=== PATIENT | male | born 1960 | race African-American/Black ===

== ENCOUNTER 2017-02-20 20:54 | Emergency (ER) | payer MEDICAID ==
[~2017-02-20] VITALS: Ht 172.7 cm; Wt 72.6 kg
[2017-02-20] MEDS ORDERED: SODIUM CHLORIDE 0.9% 1,000 ML IV ONE (22:33)
[2017-02-20 23:31] LABS: BASOPHILS % 0.6 % (0.0-2.0); EOSINOPHILS % 1.1 % (0.0-5.0); HEMATOCRIT. 40.1 % (42.0-52.0); HEMOGLOBIN. 13.2 g/dL (14.0-18.0); LYMPHOCYTES % 8.8 % (20.0-50.0); MEAN CORPUSCULAR HEMOGLOBIN 29.3 pg (28.0-32.0); MEAN CORPUSCULAR VOLUME 88.9 fL (80.0-94.0); MEAN PLATELET VOLUME 8.1 fl (7.4-10.4); MONOCYTES % 3.6 % (2.0-8.0); NEUTROPHILS % 85.9 % (40.0-76.0); PLATELET 242 x1000/uL (130-400); RED BLOOD CELL COUNT 4.51 mill/uL (4.7-6.1); RED CELL DISTRIBUTION WIDTH 14.4 % (11.6-14.6)
[2017-02-20 23:36] LABS: CHLORIDE 108 mEq/L (98-107)
[2017-02-20 23:44] LABS: CARBON DIOXIDE 29 mEq/L (21-32); ETHANOL BLOOD < 10 mg/dL
[2017-02-21] MEDS ORDERED: MORPHINE SULFATE 4 MG/ML CPJ (NOT FOR IM USE) IV ONE (00:45)
[2017-02-21 01:20] LABS: CLARITY URINE CLEAR (CLEAR); COLOR URINE YELLOW (YELLOW); GLUCOSE URINE NEGATIVE (NEGATIVE); KETONES URINE NEGATIVE (NEGATIVE); LEUKOCYTE ESTERASE URINE NEGATIVE (NEGATIVE); NITRITE URINE NEGATIVE (NEGATIVE); OCCULT BLOOD URINE NEGATIVE (NEGATIVE); PH URINE 7.5 (4.5-8.0); PROTEIN URINE NEGATIVE (NEGATIVE); SPECIFIC GRAVITY URINE 1.008 (1.005-1.030); UROBILINOGEN URINE 0.2 E.U./dL (0.2-1.0)
[2017-02-21 01:33] LABS: *AMPHETAMINES SCREEN URINE NEGATIVE (NEGATIVE); *BARBITURATES SCREEN URINE NEGATIVE (NEGATIVE); *BENZODIAZEPINES SCREEN URINE NEGATIVE (NEGATIVE); *COCAINE SCREEN URINE NEGATIVE (NEGATIVE); CANNABINOID URINE SCREEN NEGATIVE (NEGATIVE); METHADONE URINE SCREEN NEGATIVE (NEGATIVE); OPIATES URINE SCREEN PRESUMTIVE POSITIVE (NEGATIVE); PHENCYCLIDINE URINE SCREEN NEGATIVE (NEGATIVE)
[2017-02-21 02:20] VITALS: BP 132/94
== END 2017-02-21 02:20 | disposition home or self-care (01) ==
LOC: ER 21:40
DX: K40.90 Unilateral inguinal hernia, without obstruction or gangrene, not specified as recurrent (principal); K59.00 Constipation, unspecified; I10 Essential (primary) hypertension; F17.210 Nicotine dependence, cigarettes, uncomplicated
CPT/HCPCS: 36415; 80053; 80305; 81003; 83690; 85025; 96360; 96361; 99285; G0482; J7030; Z7610

== ENCOUNTER 2017-03-20 12:31 | Emergency (ER) | payer MEDICAID, OTHER ==
[~2017-03-20] VITALS: Ht 182.9 cm; Wt 72.6 kg
[2017-03-20 15:35] VITALS: BP 141/90
== END 2017-03-20 15:36 | disposition home or self-care (01) ==
LOC: ER 12:32
DX: G89.18 Other acute postprocedural pain (principal); F32.9 Major depressive disorder, single episode, unspecified; I10 Essential (primary) hypertension; F17.200 Nicotine dependence, unspecified, uncomplicated; Z98.890 Other specified postprocedural states
CPT/HCPCS: 99283

== ENCOUNTER 2019-02-28 05:03 | Emergency (ER) | payer OTHER, MEDICAID ==
[~2019-02-28] VITALS: Ht 177.8 cm; Wt 88.0 kg
[~2019-02-28 05:03] MED LIST: AMLO10TA80 PO; ATEN-42 PO; HYDR-4067 PO; LISI1TAB9 MT; MIRT15TA MT; [UNRECOGNIZED DRUG - CODE] TP
[2019-02-28] MEDS ORDERED: SODIUM CHLORIDE 0.9% 1,000 ML IV ONE (05:20)
[2019-02-28] MEDS ORDERED: ONDANSETRON HCL 4MG/2ML INJ IV STA (05:20)
[2019-02-28] MEDS ORDERED: KETOROLAC 30MG/ML VIAL IV STA (05:20)
[2019-02-28 05:42] LABS: CHLORIDE 105 mEq/L (98-107)
[2019-02-28 05:45] LABS: BASOPHILS % 0.4 % (0.0-2.0); HEMATOCRIT. 36.4 % (42.0-52.0); LYMPHOCYTES % 8.1 % (20.0-50.0); MEAN CORPUSCULAR HEMOGLOBIN 29.2 pg (28.0-32.0); MEAN CORPUSCULAR VOLUME 88.7 fL (80.0-94.0); MEAN PLATELET VOLUME 7.4 fl (7.4-10.4); MONOCYTES % 4.6 % (2.0-8.0); NEUTROPHILS % 85.9 % (40.0-76.0); PLATELET 411 x1000/uL (130-400); RED BLOOD CELL COUNT 4.11 mill/uL (4.7-6.1); RED CELL DISTRIBUTION WIDTH 14.6 % (11.6-14.6)
[2019-02-28] MEDS ORDERED: VISCOUS LIDOCAINE 2% 15 ML UDC PO STA (06:20)
[2019-02-28] MEDS ORDERED: MAGNESIUM/ALUMINUM HYDROXIDE/SIMETHICONE 30ML UDC PO STA (06:20)
[2019-02-28 07:08] LABS: CLARITY URINE TURBID (CLEAR); COLOR URINE YELLOW (YELLOW); KETONES URINE NEGATIVE (NEGATIVE); LEUKOCYTE ESTERASE URINE NEGATIVE (NEGATIVE); NITRITE URINE NEGATIVE (NEGATIVE); OCCULT BLOOD URINE NEGATIVE (NEGATIVE); PH URINE >=9.0 (4.5-8.0); PROTEIN URINE NEGATIVE (NEGATIVE); SPECIFIC GRAVITY URINE 1.014 (1.005-1.030)
[2019-02-28 10:15] VITALS: BP 124/75
== END 2019-02-28 11:30 | disposition home or self-care (01) ==
LOC: ER 05:03
DX: R10.30 Lower abdominal pain, unspecified (principal); I10 Essential (primary) hypertension; R11.2 Nausea with vomiting, unspecified; Z87.19 Personal history of other diseases of the digestive system
CPT/HCPCS: 36415; 74176; 80053; 81003; 83690; 85025; 96361; 96374; 96375; 99284; J1885; J2405; J7030

== ENCOUNTER 2019-04-08 16:18 | Emergency (ER) | payer OTHER, MEDICAID ==
[~2019-04-08] VITALS: Ht 182.9 cm; Wt 77.0 kg
[2019-04-08] MEDS ORDERED: ASPIRIN 81MG TABLET PO ONE (17:45)
[2019-04-08 18:18] LABS: BASOPHILS % 0.8 % (0.0-2.0); EOSINOPHILS % 1.5 % (0.0-5.0); HEMATOCRIT. 39.9 % (42.0-52.0); HEMOGLOBIN. 13.1 g/dL (14.0-18.0); MEAN CORPUSCULAR HEMOGLOBIN 29.6 pg (28.0-32.0); MEAN CORPUSCULAR VOLUME 89.9 fL (80.0-94.0); MEAN PLATELET VOLUME 8.2 fl (7.4-10.4); NEUTROPHILS % 69.7 % (40.0-76.0); PLATELET 292 x1000/uL (130-400); RED BLOOD CELL COUNT 4.44 mill/uL (4.7-6.1); RED CELL DISTRIBUTION WIDTH 14.5 % (11.6-14.6)
[2019-04-08 18:25] LABS: CHLORIDE 106 mEq/L (98-107)
[2019-04-08 18:27] LABS: CLARITY URINE CLEAR (CLEAR); COLOR URINE YELLOW (YELLOW); KETONES URINE NEGATIVE (NEGATIVE); LEUKOCYTE ESTERASE URINE NEGATIVE (NEGATIVE); NITRITE URINE NEGATIVE (NEGATIVE); OCCULT BLOOD URINE NEGATIVE (NEGATIVE); PROTEIN URINE NEGATIVE (NEGATIVE); SPECIFIC GRAVITY URINE 1.008 (1.005-1.030)
[2019-04-08 18:29] LABS: PARTIAL THROMBOPLASTIN TIME 26.8 sec (23.4-31.0); PROTHROMBIN TIME 10.7 sec (9.6-11.0)
[2019-04-08 18:33] LABS: ETHANOL BLOOD < 10 mg/dL
[2019-04-08 18:36] LABS: CREATINE KINASE 89 IU/L (39-308); CREATINE KINASE MB FRACTION < 1.0 ng/mL (0.5-3.6)
[2019-04-08 18:38] LABS: LDL CHOLESTEROL 124 mg/dL (5-100)
[2019-04-08 18:40] LABS: HDL CHOLESTEROL 37 mg/dL (40-59)
[2019-04-08 19:04] LABS: *BENZODIAZEPINES SCREEN URINE NEGATIVE (NEGATIVE); *COCAINE SCREEN URINE NEGATIVE (NEGATIVE)
[2019-04-08 19:05] LABS: *AMPHETAMINES SCREEN URINE NEGATIVE (NEGATIVE); *BARBITURATES SCREEN URINE NEGATIVE (NEGATIVE); CANNABINOID URINE SCREEN NEGATIVE (NEGATIVE); METHADONE URINE SCREEN NEGATIVE (NEGATIVE); OPIATES URINE SCREEN NEGATIVE (NEGATIVE); PHENCYCLIDINE URINE SCREEN NEGATIVE (NEGATIVE)
[2019-04-08 20:30] VITALS: BP 136/72
== END 2019-04-08 20:30 | disposition left against medical advice (07) ==
LOC: ER 16:18 → CANBEDREQ 22:23
DX: R07.89 Other chest pain (principal); R06.02 Shortness of breath; I10 Essential (primary) hypertension; F17.210 Nicotine dependence, cigarettes, uncomplicated; Z82.49 Family history of ischemic heart disease and other diseases of the circulatory system; Z71.6 Tobacco abuse counseling
CPT/HCPCS: 36415; 71045; 80061; 80305; 80320; 82550; 82553; 83880; 84443; 84484; 93005; 99284; 99406; G0480

== ENCOUNTER 2021-07-22 20:41 | Emergency (ER) | payer OTHER, MEDICAID ==
[~2021-07-22] VITALS: Ht 182.9 cm; Wt 90.0 kg
[~2021-07-22 20:41] MED LIST changes: -HYDR-4067 PO; +HYDR-4797 PO; +MIRT-118 MT; -MIRT15TA MT
[2021-07-22 21:07] VITALS: BP 162/90
== END 2021-07-22 23:00 | disposition left against medical advice (07) ==
LOC: ER 20:41
DX: M79.18 Myalgia, other site (principal); Z53.21 Procedure and treatment not carried out due to patient leaving prior to being seen by health care provider
CPT/HCPCS: 71045

== ENCOUNTER 2021-07-23 10:05 | Emergency (ER) | payer OTHER, MEDICAID ==
[~2021-07-23] VITALS: Ht 182.9 cm; Wt 81.0 kg
[2021-07-23 12:14] LABS: BASOPHILS % 0.4 % (0.0-2.0); EOSINOPHILS % 1.1 % (0.0-5.0); HEMATOCRIT. 40.3 % (42.0-52.0); HEMOGLOBIN. 13.3 g/dL (14.0-18.0); LYMPHOCYTES % 13.5 % (20.0-50.0); MEAN CORPUSCULAR HEMOGLOBIN 28.9 pg (28.0-32.0); MEAN CORPUSCULAR VOLUME 87.3 fL (80.0-94.0); MEAN PLATELET VOLUME 8.4 fl (7.4-10.4); MONOCYTES % 12.1 % (2.0-8.0); NEUTROPHILS % 72.9 % (40.0-76.0); PLATELET 301 x1000/uL (130-400); RED BLOOD CELL COUNT 4.61 mill/uL (4.7-6.1); RED CELL DISTRIBUTION WIDTH 14.2 % (11.6-14.6)
[2021-07-23 12:24] LABS: CHLORIDE 106 mEq/L (98-107)
[2021-07-23 14:54] VITALS: BP 120/65
== END 2021-07-23 14:55 | disposition home or self-care (01) ==
LOC: ER 10:05
DX: J06.9 Acute upper respiratory infection, unspecified (principal); I10 Essential (primary) hypertension; Z20.822 Contact with and (suspected) exposure to COVID-19
CPT/HCPCS: 36415; 80048; 85025; 87804; 93005; 99284; C9803; U0003; U0005

== ENCOUNTER 2021-11-18 15:27 | Emergency (ER) | payer OTHER, MEDICAID ==
[~2021-11-18] VITALS: Ht 182.9 cm; Wt 83.0 kg
[2021-11-18 15:38] VITALS: BP 175/100
[2021-11-18] MEDS ORDERED: MAGNESIUM/ALUMINUM HYDROXIDE/SIMETHICONE 30ML UDC PO STA (16:08)
[2021-11-18] MEDS ORDERED: ONDANSETRON HCL 4MG/2ML INJ IV STA (16:08)
[2021-11-18] MEDS ORDERED: FAMOTIDINE 20MG/2ML VIAL IV STA (16:08)
[2021-11-18] MEDS ORDERED: SODIUM CHLORIDE 0.9% 1,000 ML IV ONE (16:15)
[2021-11-18 18:57] LABS: BASOPHILS % 0.6 % (0.0-2.0); EOSINOPHILS % 1.2 % (0.0-5.0); HEMATOCRIT. 45.5 % (42.0-52.0); HEMOGLOBIN. 14.9 g/dL (14.0-18.0); LYMPHOCYTES % 19.3 % (20.0-50.0); MEAN CORPUSCULAR HEMOGLOBIN 28.3 pg (28.0-32.0); MEAN CORPUSCULAR VOLUME 86.5 fL (80.0-94.0); MEAN PLATELET VOLUME 8.2 fl (7.4-10.4); MONOCYTES % 6.5 % (2.0-8.0); NEUTROPHILS % 72.4 % (40.0-76.0); PLATELET 304 x1000/uL (130-400); RED BLOOD CELL COUNT 5.26 mill/uL (4.7-6.1); RED CELL DISTRIBUTION WIDTH 14.6 % (11.6-14.6)
[2021-11-18 19:05] LABS: CHLORIDE 106 mEq/L (98-107)
[2021-11-18 19:06] LABS: CLARITY URINE CLEAR (CLEAR); COLOR URINE DARK YELLOW (YELLOW); KETONES URINE TRACE (NEGATIVE); LEUKOCYTE ESTERASE URINE NEGATIVE (NEGATIVE); NITRITE URINE NEGATIVE (NEGATIVE); OCCULT BLOOD URINE NEGATIVE (NEGATIVE); PROTEIN URINE 1+ (NEGATIVE); SPECIFIC GRAVITY URINE 1.027 (1.005-1.030)
[2021-11-18 19:16] LABS: *AMPHETAMINES SCREEN URINE NEGATIVE (NEGATIVE); *BARBITURATES SCREEN URINE NEGATIVE (NEGATIVE); *BENZODIAZEPINES SCREEN URINE NEGATIVE (NEGATIVE); *COCAINE SCREEN URINE NEGATIVE (NEGATIVE); CANNABINOID URINE SCREEN NEGATIVE (NEGATIVE)
[2021-11-18 19:17] LABS: METHADONE URINE SCREEN NEGATIVE (NEGATIVE); OPIATES URINE SCREEN NEGATIVE (NEGATIVE); PHENCYCLIDINE URINE SCREEN NEGATIVE (NEGATIVE)
[2021-11-18] MEDS ORDERED: POLY17PO3 MT (19:58)
[2021-11-18] MEDS ORDERED: FEO PR (19:59)
[2021-11-18] MEDS ORDERED: FAMO-135 MT (19:59)
== END 2021-11-18 20:25 | disposition home or self-care (01) ==
LOC: ER 15:27
DX: K21.9 Gastro-esophageal reflux disease without esophagitis (principal); K59.00 Constipation, unspecified; I10 Essential (primary) hypertension; Z79.899 Other long term (current) drug therapy
CPT/HCPCS: 36415; 71045; 71250; 74176; 80053; 80305; 81003; 83690; 83880; 84484; 85025; 93005; 96361; 96374; 96375; 99285; J2405; J3490; J7030

== ENCOUNTER 2021-11-21 09:36 | Emergency (ER) | payer OTHER, MEDICAID ==
[~2021-11-21] VITALS: Ht 182.9 cm; Wt 85.0 kg
[~2021-11-21 09:36] MED LIST changes: +FAMO-135 MT; +FEO PR; +POLY17PO3 MT
[2021-11-21] MEDS ORDERED: VISCOUS LIDOCAINE 2% 15 ML UDC PO STA (10:00)
[2021-11-21] MEDS ORDERED: FAMOTIDINE 20MG TABLET PO ONE (10:00)
[2021-11-21] MEDS ORDERED: MAGNESIUM/ALUMINUM HYDROXIDE/SIMETHICONE 30ML UDC PO STA (10:00)
[2021-11-21 11:55] LABS: BASOPHILS % 0.9 % (0.0-2.0); EOSINOPHILS % 4.1 % (0.0-5.0); HEMATOCRIT. 39.2 % (42.0-52.0); HEMOGLOBIN. 13.1 g/dL (14.0-18.0); LYMPHOCYTES % 24.7 % (20.0-50.0); MEAN CORPUSCULAR HEMOGLOBIN 28.8 pg (28.0-32.0); MEAN CORPUSCULAR VOLUME 86.2 fL (80.0-94.0); MEAN PLATELET VOLUME 7.8 fl (7.4-10.4); MONOCYTES % 9.3 % (2.0-8.0); PLATELET 294 x1000/uL (130-400); RED BLOOD CELL COUNT 4.55 mill/uL (4.7-6.1); RED CELL DISTRIBUTION WIDTH 14.5 % (11.6-14.6)
[2021-11-21 12:01] LABS: CHLORIDE 108 mEq/L (98-107)
[2021-11-21 12:11] VITALS: BP 167/100
[2021-11-21] MEDS ORDERED: LANS30CA55 MT (12:52)
[2021-11-21] MEDS ORDERED: AMOX-494 MT (12:52)
[2021-11-21] MEDS ORDERED: CLAR-44 MT (12:52)
== END 2021-11-21 13:02 | disposition home or self-care (01) ==
LOC: ER 09:36
DX: R13.10 Dysphagia, unspecified (principal); K21.9 Gastro-esophageal reflux disease without esophagitis; K29.50 Unspecified chronic gastritis without bleeding; I10 Essential (primary) hypertension; J44.9 Chronic obstructive pulmonary disease, unspecified; Z98.890 Other specified postprocedural states
CPT/HCPCS: 36415; 80053; 85025; 93005; 99284

== ENCOUNTER 2022-08-27 10:10 | Inpatient (IN) | payer OTHER, MEDICAID ==
[~2022-08-27] VITALS: Ht 182.9 cm; Wt 82.6 kg
[~2022-08-27 10:10] MED LIST changes: +AMOX-494 MT; +CLAR-44 MT; +LANS30CA55 MT
[2022-08-27 11:59] LABS: CLARITY URINE CLEAR (CLEAR); COLOR URINE YELLOW (YELLOW); KETONES URINE NEGATIVE (NEGATIVE); LEUKOCYTE ESTERASE URINE NEGATIVE (NEGATIVE); NITRITE URINE NEGATIVE (NEGATIVE); OCCULT BLOOD URINE NEGATIVE (NEGATIVE); PH URINE 6.5 (4.5-8.0); PROTEIN URINE NEGATIVE (NEGATIVE); SPECIFIC GRAVITY URINE 1.017 (1.005-1.030); UROBILINOGEN URINE 0.2 E.U./dL (0.2-1.0)
[2022-08-27 12:06] LABS: BASOPHILS % 0.4 % (0.0-2.0); CHLORIDE 109 mEq/L (98-107); EOSINOPHILS % 1.7 % (0.0-5.0); HEMATOCRIT. 43.4 % (42.0-52.0); HEMOGLOBIN. 14.2 g/dL (14.0-18.0); LYMPHOCYTES % 10.7 % (20.0-50.0); MEAN CORPUSCULAR HEMOGLOBIN 29.3 pg (28.0-32.0); MEAN CORPUSCULAR VOLUME 89.4 fL (80.0-94.0); MEAN PLATELET VOLUME 8.6 fl (7.4-10.4); MONOCYTES % 5.7 % (2.0-8.0); NEUTROPHILS % 81.5 % (40.0-76.0); PLATELET 268 x1000/uL (130-400); RED BLOOD CELL COUNT 4.86 mill/uL (4.7-6.1); RED CELL DISTRIBUTION WIDTH 14.9 % (11.6-14.6)
[2022-08-27 12:13] LABS: ETHANOL BLOOD < 10 mg/dL
[2022-08-27 12:22] LABS: *AMPHETAMINES SCREEN URINE NEGATIVE (NEGATIVE); *BARBITURATES SCREEN URINE NEGATIVE (NEGATIVE); *BENZODIAZEPINES SCREEN URINE NEGATIVE (NEGATIVE); *COCAINE SCREEN URINE NEGATIVE (NEGATIVE); CANNABINOID URINE SCREEN NEGATIVE (NEGATIVE); METHADONE URINE SCREEN NEGATIVE (NEGATIVE); OPIATES URINE SCREEN NEGATIVE (NEGATIVE); PHENCYCLIDINE URINE SCREEN NEGATIVE (NEGATIVE)
[2022-08-27] MEDS ORDERED: IOHEXOL-350 100 ML BOTTLE ONE (12:45)
[2022-08-27] MEDS ORDERED: ASPIRIN 325MG TABLET PO ONE (13:15)
[2022-08-27] MEDS: CLOPIDOGREL 75MG TABLET PO SCH (21:39)
[2022-08-27] MEDS: ASPIRIN 81MG TABLET PO SCH (21:39)
[2022-08-27 21:45] VITALS: BP 136/80
[2022-08-27] MEDS ORDERED: PANT40TA51 PO (22:27)
[2022-08-27] MEDS ORDERED: QUET25TA36 PO (22:27)
[2022-08-28] MEDS ORDERED: ACETAMINOPHEN 325MG TABLET PO PRN (00:45)
[2022-08-28] MEDS ORDERED: CLONIDINE 0.1MG TABLET PO PRN (00:45)
[2022-08-28 04:00] VITALS: BP 120/91
[2022-08-28 06:47] LABS: BASOPHILS % 0.6 % (0.0-2.0); EOSINOPHILS % 3.7 % (0.0-5.0); HEMATOCRIT. 40.3 % (42.0-52.0); HEMOGLOBIN. 13.5 g/dL (14.0-18.0); LYMPHOCYTES % 24.1 % (20.0-50.0); MEAN CORPUSCULAR HEMOGLOBIN 29.4 pg (28.0-32.0); MEAN CORPUSCULAR VOLUME 87.7 fL (80.0-94.0); MEAN PLATELET VOLUME 8.5 fl (7.4-10.4); MONOCYTES % 8.2 % (2.0-8.0); NEUTROPHILS % 63.4 % (40.0-76.0); PLATELET 238 x1000/uL (130-400); RED CELL DISTRIBUTION WIDTH 14.9 % (11.6-14.6)
[2022-08-28 07:13] LABS: CHLORIDE 107 mEq/L (98-107)
[2022-08-28 07:27] LABS: HDL CHOLESTEROL 39 mg/dL (40-59); LDL CHOLESTEROL 99 mg/dL (5-100)
[2022-08-28 08:00] VITALS: BP 128/80
[2022-08-28] MEDS ORDERED: ENOXAPARIN 40MG/0.4ML SYR SUBCUT SCH (09:00)
[2022-08-28] MEDS: ASPIRIN 81MG TABLET PO SCH (09:19)
[2022-08-28] MEDS: CLOPIDOGREL 75MG TABLET PO SCH (09:19)
[2022-08-28 12:00] VITALS: BP 123/81
[2022-08-28 16:00] VITALS: BP 128/82
== END 2022-08-28 17:55 | disposition home or self-care (01) | DRG 57 ==
LOC: ER 10:10 → EDBEDREQTM 11:35 → EDBEDREQ 11:35 → EDBEDREQSVC 11:35 → MICUSO 13:10 → EDBEDREQ 13:11 → EDBEDREQTM 13:11 → 7WST 22:18
PROVIDERS: ADMIT Internal Medicine; ATTEND Internal Medicine
DX: G81.91 Hemiplegia, unspecified affecting right dominant side (principal); R47.1 Dysarthria and anarthria; R26.0 Ataxic gait; J44.9 Chronic obstructive pulmonary disease, unspecified; I10 Essential (primary) hypertension; Z20.822 Contact with and (suspected) exposure to COVID-19; F31.9 Bipolar disorder, unspecified; F20.9 Schizophrenia, unspecified; R20.2 Paresthesia of skin; K21.9 Gastro-esophageal reflux disease without esophagitis; E78.5 Hyperlipidemia, unspecified; F17.210 Nicotine dependence, cigarettes, uncomplicated; Z86.73 Personal history of transient ischemic attack (TIA), and cerebral infarction without residual deficits; Z79.899 Other long term (current) drug therapy; Z79.82 Long term (current) use of aspirin; R29.703 NIHSS score 3
CPT/HCPCS: 36415; 70496; 70498; 71045; 80048; 80053; 80061; 80305; 80320; 81003; 83036; 84443; 85025; 93005; 93306; 99291; J1650; Q9967; G0480

== ENCOUNTER 2022-09-07 23:55 | Emergency (ER) | payer OTHER, MEDICAID ==
[~2022-09-07] VITALS: Ht 182.9 cm; Wt 78.0 kg
[~2022-09-07 23:55] MED LIST changes: +PANT40TA51 PO; +QUET25TA36 PO
[2022-09-08 00:05] VITALS: BP 189/97
== END 2022-09-08 06:58 | disposition left against medical advice (07) ==
LOC: ER 09-08 00:12
DX: Z53.21 Procedure and treatment not carried out due to patient leaving prior to being seen by health care provider (principal)

== ENCOUNTER 2024-04-07 02:56 | Emergency (ER) | payer OTHER, MEDICAID ==
[~2024-04-07] VITALS: Ht 182.9 cm; Wt 77.0 kg
[~2024-04-07 02:56] MED LIST changes: -MIRT-118 MT; +MIRT-144 MT
[2024-04-07 03:03] VITALS: O2SAT 100
[2024-04-07] MEDS: ONDANSETRON 4MG ODT PO STA (03:20)
[2024-04-07] MEDS: HYDROCODONE/ACETAMINOPHEN 5/325MG TABLET PO STA (04:45)
[2024-04-07] MEDS ORDERED: GENT5DRO38 EACHEYE (05:50)
[2024-04-07] MEDS ORDERED: AMOX-494 MT (05:50)
[2024-04-07] MEDS ORDERED: CETI10CA2 MT (05:50)
[2024-04-07 06:15] VITALS: BP 161/90; PULSE 86; RESP 20; TEMP 98.3
== END 2024-04-07 06:15 | disposition home or self-care (01) ==
LOC: ER 02:56
DX: H10.9 Unspecified conjunctivitis (principal); I10 Essential (primary) hypertension; R51.9 Headache, unspecified; Z79.899 Other long term (current) drug therapy
CPT/HCPCS: 99284; 70450; Q0162

== ENCOUNTER 2024-09-04 14:58 | Emergency (ER) | payer MEDICARE, MEDICAID ==
[~2024-09-04] VITALS: Ht 180.3 cm; Wt 90.0 kg
[~2024-09-04 14:58] MED LIST changes: +CETI10CA2 MT; +GENT5DRO38 EACHEYE; +LISI40TA13 MT
[2024-09-04 15:04] VITALS: O2SAT 98
[2024-09-04] MEDS: EPINEPHRINE 1:1000 1 MG/ML AMP IM ONE (15:13)
[2024-09-04] MEDS: METHYLPREDNISOLONE SOD SUCC 125MG/2ML (ACT-O-VIAL) IV ONE (15:16)
[2024-09-04] MEDS: DIPHENHYDRAMINE 50MG/ML VIAL IV ONE (15:16)
[2024-09-04] MEDS: SODIUM CHLORIDE 0.9% 1,000 ML IV SCH (15:23)
[2024-09-04 15:32] LABS: BASOPHILS % 0.7 % (0.0-2.0); HEMATOCRIT. 42.7 % (42.0-52.0); HEMOGLOBIN. 13.8 g/dL (14.0-18.0); LYMPHOCYTES % 20.5 % (20.0-50.0); MEAN CORPUSCULAR HEMOGLOBIN 29.2 pg (28.0-32.0); MEAN CORPUSCULAR HGB CONC 32.4 g/dL (31.0-37.0); MEAN CORPUSCULAR VOLUME 90.2 fL (80.0-94.0); MEAN PLATELET VOLUME 8.2 fl (7.4-10.4); MONOCYTES % 6.5 % (2.0-8.0); NEUTROPHILS % 68.3 % (40.0-76.0); PLATELET 310 x1000/uL (130-400); RED BLOOD CELL COUNT 4.73 mill/uL (4.7-6.1); RED CELL DISTRIBUTION WIDTH 15.1 % (11.6-14.6); WHITE BLOOD COUNT 8.9 x1000/uL (4.5-11.0)
[2024-09-04 15:35] VITALS: PULSE 93; RESP 20
[2024-09-04 15:35] LABS: CHLORIDE 112 mEq/L (98-107); POTASSIUM 3.8 mEq/L (3.5-5.1); SODIUM 143 mEq/L (136-145)
[2024-09-04] MEDS: RACEPINEPHRINE 2.25% 0.5ML NEB VIAL HHN ONE (15:35)
[2024-09-04 15:36] LABS: CARBON DIOXIDE 27 mEq/L (21-32)
[2024-09-04] MEDS: FAMOTIDINE 20MG/2ML VIAL IV ONE (15:38)
[2024-09-04 15:41] LABS: CREATININE 1.2 mg/dL (0.6-1.3); GLUCOSE 88 mg/dL (70-105); PROTHROMBIN TIME 10.9 sec (9.6-11.0); UREA NITROGEN BLOOD 15 mg/dL (9-23)
[2024-09-04 21:55] VITALS: BP 173/112; PULSE 96; RESP 14; TEMP 36.78072; O2SAT 100
[2024-09-04] MEDS ORDERED: IOHEXOL-300 100 ML BOTTLE ONE (23:20)
== END 2024-09-04 22:26 | disposition short-term general hospital (02) ==
LOC: ER 14:58 → CANBEDREQ 17:02 → ER 22:26
DX: K12.2 Cellulitis and abscess of mouth (principal); F41.9 Anxiety disorder, unspecified; F31.9 Bipolar disorder, unspecified; I10 Essential (primary) hypertension; Z79.899 Other long term (current) drug therapy
CPT/HCPCS: 99285; 96361; 96374; 70491; 71045; 96375; 80048; 85025; 85610; 36415; 94640; 93005; 96372; Q9967; J1200; J3490 ×2; J2919